=== PATIENT | male | born 1980 | race African-American/Black ===

== ENCOUNTER 2017-01-26 09:44 | Emergency (ER) | payer SELFPAY ==
[~2017-01-26] VITALS: Ht 170.2 cm; Wt 86.0 kg
[2017-01-26 10:20] LABS: BASOPHILS % 0.8 % (0.0-2.0); EOSINOPHILS % 5.2 % (0.0-5.0); HEMATOCRIT. 43.7 % (42.0-52.0); HEMOGLOBIN. 14.8 g/dL (14.0-18.0); LYMPHOCYTES % 34.4 % (20.0-50.0); MEAN CORPUSCULAR HGB CONC 33.9 g/dL (31.0-37.0); MEAN CORPUSCULAR VOLUME 88.5 fL (80.0-94.0); MEAN PLATELET VOLUME 8.2 fl (7.4-10.4); MONOCYTES % 7.6 % (2.0-8.0); PLATELET 218 x1000/uL (130-400); RED BLOOD CELL COUNT 4.94 mill/uL (4.7-6.1); RED CELL DISTRIBUTION WIDTH 14.5 % (11.6-14.6); WHITE BLOOD COUNT 5.4 x1000/uL (4.5-11.0)
[2017-01-26 10:32] LABS: ALANINE AMINOTRANSFERASE 24 IU/L (13-61); ALBUMIN 4.1 g/dL (3.4-5.0); ANION GAP 13; CALCIUM 9.4 mg/dL (8.5-10.1); CARBON DIOXIDE 25 mEq/L (21-32); CHLORIDE 106 mEq/L (98-107); INDEX HEMOLYSI 1 (1-3); INDEX ICTERIC 1 (1-4); INDEX LIPEMIC 1 (1-3); UREA NITROGEN BLOOD 18 mg/dL (7-21); eGFR > 60 mL/min (>60)
[2017-01-26 10:34] VITALS: BP 127/75
== END 2017-01-26 10:53 | disposition home or self-care (01) ==
LOC: ER 09:47
DX: R00.2 Palpitations (principal); F17.210 Nicotine dependence, cigarettes, uncomplicated; Z87.828 Personal history of other (healed) physical injury and trauma
CPT/HCPCS: 36415; 71010; 80053; 85025; 99285; Z7610